=== PATIENT | female | born 1975 | race Caucasian/White ===

== ENCOUNTER 2017-03-02 11:57 | Emergency (ER) | payer MEDICAID | END 2017-03-02 12:22 | disposition home or self-care (01) | LOC: FTE 11:57 → E/R 12:22 | DX: J06.9 Acute upper respiratory infection, unspecified (principal) | CPT/HCPCS: 99284; Z7502 ==

== ENCOUNTER 2017-03-07 05:31 | Emergency (ER) | payer MEDICAID ==
[2017-03-07] MEDS: KETOROLAC 30 MG INJ IM (06:42)
== END 2017-03-07 08:02 | disposition home or self-care (01) ==
LOC: FTE 05:31
DX: M79.605 Pain in left leg (principal); M79.604 Pain in right leg; R05 Cough
CPT/HCPCS: 71045; 71250; 96372; 99285-25